=== PATIENT | female | born 1985 | race Two or more races ===

== ENCOUNTER → 2017-05-06 | Outpatient (CLI) | payer BC | LOC: OD 16:10 | PROVIDERS: ATTEND Nurse Practitioner Family | DX: R50.9 Fever, unspecified (principal) | CPT/HCPCS: 87804 ==

== ENCOUNTER 2018-08-25 19:41 | Emergency (ER) | payer OTHER ==
[2018-08-25] MEDS ORDERED: ACETAMINOPHEN 325 MG TABLET PO ONE (20:38)
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
[2018-08-25 22:17] LABS: APPEARANCE,URINE SLIGHTLY-CLOUDY; BILIRUBIN,URINE NEGATIVE (NEGATIVE); COLOR,URINE YELLOW; GLUCOSE, URINE NEGATIVE (NEGATIVE); KETONES,URINE NEGATIVE (NEGATIVE); LEUKOCYTE ESTERASE,URINE NEGATIVE (NEGATIVE); NITRITE,URINE NEGATIVE (NEGATIVE); PROTEIN,URINE NEGATIVE (NEGATIVE); URINE SPECIFIC GRAVITY 1.024; UROBILINOGEN,URINE NEGATIVE mg/dL (<2.0)
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
[2018-08-26 00:24] VITALS: BP 142/87
== END 2018-08-26 00:30 | disposition home or self-care (01) ==
LOC: ER 19:41
DX: R07.81 Pleurodynia (principal); M54.6 Pain in thoracic spine; V87.7XXA Person injured in collision between other specified motor vehicles (traffic), initial encounter; J45.909 Unspecified asthma, uncomplicated
CPT/HCPCS: 71046; 72070; 81001; 81025; 99283

== ENCOUNTER 2019-05-12 18:52 | Outpatient (CLI) | payer OTHER ==
[2019-05-12 20:04] LABS: APPEARANCE,URINE CLEAR; BILIRUBIN,URINE NEGATIVE (NEGATIVE); COLOR,URINE YELLOW; GLUCOSE, URINE NEGATIVE (NEGATIVE); KETONES,URINE 20 mg/dL (NEGATIVE); LEUKOCYTE ESTERASE,URINE TRACE (NEGATIVE); NITRITE,URINE NEGATIVE (NEGATIVE); PROTEIN,URINE NEGATIVE (NEGATIVE); URINE SPECIFIC GRAVITY 1.011; UROBILINOGEN,URINE NEGATIVE mg/dL (<2.0)
[2019-05-12 20:11] LABS: URINE AMPHETAMINES SCREEN NEGATIVE; URINE BARBITURATES SCREEN NEGATIVE; URINE BENZODIAZEPINES SCREEN NEGATIVE; URINE COCAINE SCREEN NEGATIVE; URINE MARIJUANA (THC) SCREEN NEGATIVE; URINE METHADONE SCREEN NEGATIVE; URINE PHENCYCLIDINE SCREEN NEGATIVE
[2019-05-12] MEDS ORDERED: FOSFOMYCIN TROMETHAMINE 3 GM PACKET PO ONE (20:30)
== END 2019-05-12 20:35 | disposition home or self-care (01) ==
LOC: LC 18:52
PROVIDERS: ATTEND Obstetrics & Gynecology
PROC: 4A1HXCZ Monitoring of Products of Conception, Cardiac Rate, External Approach (ICD-10-PCS; principal; 2019-05-12)
DX: O23.42 Unspecified infection of urinary tract in pregnancy, second trimester (principal); Z3A.21 21 weeks gestation of pregnancy
CPT/HCPCS: 81001; 80307; 59899; Q0114

== ENCOUNTER 2019-08-17 21:18 | Outpatient (CLI) | payer MEDICAID, OTHER ==
[2019-08-17 22:08] LABS: ABSOLUTE BASOPHILS # (AUTO) 0.1 10^3/uL (0.0-0.2); ABSOLUTE EOSINOPHILS # (AUTO) 0.1 10^3/uL (0.0-0.6); ABSOLUTE LYMPHOCYTES (AUTO) 2.7 10^3/uL (0.5-4.7); ABSOLUTE MONOCYTES (AUTO) 0.8 10^3/uL (0.1-1.4); ABSOLUTE NEUT (AUTO) 6.9 10^3/uL (1.7-8.2); BASOPHILS % (AUTO) 0.9 % (0-2); EOSINOPHILS % (AUTO) 0.7 % (0-6); HEMATOCRIT 35.7 % (36.0-47.0); LYMPHOCYTES % (AUTO) 25.6 % (13-45); MEAN CORPUSCULAR HEMOGLOBIN 26.2 pg (27.0-33.4); MEAN CORPUSCULAR HGB CONC 33.6 g/dL (32.0-36.0); MEAN CORPUSCULAR VOLUME 78 fl (80-97); MONOCYTES % (AUTO) 7.7 % (3-13); PLATELET COUNT 295 10^3/uL (150-450); RED BLOOD COUNT 4.58 10^6/uL (3.72-5.28); RED CELL DISTRIBUTION WIDTH 14.7 % (11.5-14.0); SEGMENTED NEUTROPHILS % (AUTO) 65.1 % (42-78); TOTAL CELLS COUNTED % (AUTO) 100 %; WHITE BLOOD COUNT 10.6 10^3/uL (4.0-10.5)
[2019-08-17 22:14] LABS: APPEARANCE,URINE CLEAR; BILIRUBIN,URINE NEGATIVE (NEGATIVE); COLOR,URINE YELLOW; GLUCOSE, URINE NEGATIVE (NEGATIVE); KETONES,URINE NEGATIVE (NEGATIVE); LEUKOCYTE ESTERASE,URINE NEGATIVE (NEGATIVE); NITRITE,URINE NEGATIVE (NEGATIVE); PROTEIN,URINE NEGATIVE (NEGATIVE); URINE SPECIFIC GRAVITY 1.006; UROBILINOGEN,URINE NEGATIVE mg/dL (<2.0)
[2019-08-17 22:24] LABS: URINE AMPHETAMINES SCREEN NEGATIVE; URINE BARBITURATES SCREEN NEGATIVE; URINE BENZODIAZEPINES SCREEN NEGATIVE; URINE COCAINE SCREEN NEGATIVE; URINE MARIJUANA (THC) SCREEN NEGATIVE; URINE METHADONE SCREEN NEGATIVE; URINE PHENCYCLIDINE SCREEN NEGATIVE
--- NOTE | 2019-08-18 00:24 | RADIOLOGY REPORT (SQ) ---
EXAM: ULTRASOUND OB AND BIOPHYSICAL PROFILE WITHOUT NONSTRESS TEST CLINICAL INDICATION: Evaluation of and presentation, placenta, fluid; Ab1, LMP 12/17/2018. COMPARISON: None TECHNIQUE: Multiple transabdominal sonographic images of the pelvis were obtained for a total of 16 images. The exam is limited by the patient's body habitus. FINDINGS: Single live intrauterine gestation is identified. Total amniotic fluid volume is 11.9. The cervix is closed with a length of 2.7 cm. Heart rate is 141 beats per minute. The placenta is fundal. The position is vertex. Biophysical Profile: Tone: 2 Movements: 2 Breathin Amniotic Fluid Vol: 2 Total: IMPRESSION: Single live intrauterine gestation is identified with normal size for dates. The presentation is vertex, the placenta is fundal, the DUSTY measures 11.9 cm. The clinical age is 34 weeks 5 days giving an EDC on 09/23/2019. Normal biophysical profile score of 8/8.
== END 2019-08-18 00:45 | disposition home or self-care (01) ==
LOC: LC 21:18
PROVIDERS: ATTEND Student in an Organized Health Care Education/Training Program
DX: O46.93 Antepartum hemorrhage, unspecified, third trimester (principal); O47.03 False labor before 37 completed weeks of gestation, third trimester; Z3A.34 34 weeks gestation of pregnancy
CPT/HCPCS: 36415; 59025; 76815; 76819; 80307; 81001; 85025